=== PATIENT | male | born 1950 | race Caucasian/White ===

== ENCOUNTER 2025-01-19 18:24 | Emergency (ER) | payer MEDICARE, SELFPAY ==
--- OUTSIDE RECORDS SUMMARY | 2025-01-19 18:33 | XMS_ITS | Encounter Summary ---
Author Organization [employer] of [facility] and Its Subsidiaries and Affiliates Address [address] [address] [place] [address] Care Team Providers Care Canvas Goods Fabricator Name Role Phone Otilia Cagle MD Primary Care Provider [phone] Encounter Details Date Type Department Care Team (Late st Contact Info) Description 07/13/2024 Procedure Pass [facility] Practice [address] [place] [address] [place] [address] Social History Tobacco Use Types Packs/Day Years Used Date Smoking Tobacco: Former Cigarettes Smokeless Tobacco: Former Alcohol Use Standard Drinks/Week Comments Yes 3 (1 standard drink = 0.6 oz pur e alcohol) Occasionally PHQ-2 Answer Date Recorded PHQ-2 Score 0 07/13/2024 Sex and Gender Information Value Date Recorded Sex Assigned at Not on file 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
--- OUTSIDE RECORDS SUMMARY | 2025-01-19 18:33 | XMS_ITS | Clinical Summary ---
Author Organization Govind guerrier of [facility] and Its Subsidiaries and Affiliates Address [address] [address] [place] [address] Care Team Providers Care Autocad Name Role Phone Otilia Cagle MD Primary Care Provider Allergies Active Allergy Reactions Criticality Noted Date Comments Latex Rash Low 08/16/2023 Breaks out Penicillins Rash,Hives Medium 10/05/2016 Medications * Be aware that medications may not be up to date as of this document.Always verify current medications with patient. cholecalciferol, vitamin D3, 25 mcg (1,000 unit) tablet Take 1 tablet by mouth in the morning. Active L.acidoph, paracasei,B. lactis (Digestive Advantage Advanced) 10 billion cell Capsule Take by mouth. Active tamsulosin (Flomax) 0.4 mg Capsule Take 1 capsule by mouth in the morning and 1 capsule before bedtime. Active ezetimibe (ZETIA) 10 mg tablet Take 1 tablet by mouth in the morning. Active aspirin 81 mg EC tablet Take 1 tablet by mouth in the morning. Active atorvastatin (LIPITOR) 80 mg tablet Take 1 tablet by mouth in the morning. 4 Active lisinopriL (PRINIVIL,ZESTRI L) 10 mg tablet Take 1 tablet by mouth in the morning and 1 tablet before bedtime. 4 Active multivitamin (THERAGRAN) per tablet Take 1 tablet by mouth in the morning. Active montelukast (SINGULAIR) 10 mg tablet TAKE 1 TABLET AT BEDTIME 90 tablet 3 5 Active tadalafiL (Cialis) 20 mg tabletIndication s:Erectile dysfunction, unspecified erectile dysfunction type Take 1 tablet by mouth daily as needed for Erectile Dysfunction. 30 tablet 3 5 Active HYDROcodone-acet aminophen (NORCO) 5-325 mg per tablet 5 Active fluticasone propionate (FLONASE) 50 mcg/actuation nasal spray Instill 2 sprays into each nostril in the morning. 16 g 2 5 Active azelastine (ASTELIN 0.1%) 137 mcg (0.1 %) nasal spray Instill 2 sprays into each nostril in the morning and 2 sprays before bedtime. Use in each nostril as directed 90 mL 2 5 11/08/19 26 Active omeprazole (PRILOSEC) 20 mg capsule Take 1 capsule by mouth in the morning. 90 capsule 1 5 Active apixaban (Eliquis) 5 mg Take 1 tablet by mouth in the morning and 1 tablet before bedtime. 60 tablet 5 Active apixaban (Eliquis DVT-PE Treat 30D Start) Tablets, Dose Pack 10 mg twice daily x 7 days, then 5 mg twice daily 74 tablet 5 01/11/20 25 Discontinu ed(Therapy completed) Active Problems Problem Noted Date Diagnosed Date Colon cancer screening 10/09/2024 History of adenomatous polyp of colon 10/09/2024 Encounters Date Type Department Care Team Description 01/09/[address] [place] [phone] Michel Judd NP 12/20/[address] [place] [phone] Michel Judd NP 12/18/2024 10:00 AM CDT Office Visit [address] [place] [phone] Michel Judd NP 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, right (Primary Dx); History of recurrent deep vein thrombosis 12/18/[address] [place] [address] Michel Judd NP 12/16/2024 7:51 AM CDT - 12/16/2024 11:02 AM CDT Emergency [facility] - Emergency Department [address] [facility] [place] [address] Moustapha Lopez MD Venous thromboembolism (Primary Dx) Discharge Disposition: Home or Self Care 12/16/2024 Procedure Pass [facility] - US IMAGING [address] [facility] [place] [address] 12/16/2024 History [facility] - Emergency Department [address] [facility] [place] [address] Annalisa Moctezuma RN 12/16/2024 Travel 11/08/[address] [place] [address] Michel Judd NP 11/07/2024 10:48 AM CDT - 11/07/2024 11:59 PM CDT Hospital Encounter [facility] - [facility] IMAGING [address] [facility] [place] [address] Michel Judd NP Localized swelling of right lower extremity Discharge Disposition: Home or Self Care 11/07/2024 9:30 AM CDT Office Visit [address] [place] [address] Michel Judd NP Localized swelling of right lower extremity (Primary Dx); Varicose veins of right lower leg 11/07/2024 Results Follow-Up [address] [place] [phone] Chen Solis MA 11/07/2024 Procedure Pass [facility] - US IMAGING [address] [facility] [place] [address] 11/07/2024 History [facility] [address] [facility] [address] [place] [address] Michel Judd NP 10/31/2024 Results Follow-Up [facility] [address] [facility] [address] [place] [phone] Donald Holman DO from Last 3 Months Immunizations Immunization Administration Dates Next Due FLUAD High Dose (PF) Influen za Virus Vaccine 01/14/2024 Fluzone High-Dose (PF) Influ chandler Virus Vaccine 01/14/2024,03/06/2019 Influenza High-Dose (PF) Quad 0.7 mL 03/2023,02/03/2022,02/10/2021,04/15 Pneumococcal Conjugate PCV13 04/02/2020 Pneumococcal Polysaccharide PPSV23 04/15/2020 SARS-COV-2 Moderna (COVID-19 ) Vaccine Preservative Free 0.5 mL IM 09/24/2021,03/25/2021,07/16/2020,06/16 SARS-COV-2 Moderna 6-11YO OR > or = 18 YO Booster (COVID-19) Vaccine Preservative Free 0.5 mL IM 09/24/2021,03/25/2021,07/16/2020,06/16 SARS-COV-2 Pfizer Bivalent > or = 12Y0 (COVID-19) Pace Cap Vaccine Preservative Free 0.3 mL IM.3 mL IM 02/03/2022 Shingrix Zoster Vaccine 01/17/2019,11/18/2018 Tdap 11/04/2018 Family History Medical History Relation Comments Hypertension Mother Stroke Mother Colon cancer Neg Hx Relation Status Comments Mother Social History Tobacco Use Types Packs/Day Years Used Date Smoking Tobacco: Former Cigarettes Smokeless Tobacco: Former Tobacco Cessation:Counseling Given: Not Answered Alcohol Use Standard Drinks/Week Comments Yes 3 (1 standard drink = 0.6 oz pur e alcohol) Occasionally PHQ-2 Answer Date Recorded PHQ-2 Score 0 07/13/2024 Sex and Gender Information Value Date Recorded Sex Assigned at Not on file 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 Gender Identity Not on file Sexual Orientation Not on file Last Filed Vital Signs Vital Sign Reading Time Taken Comments Blood Pressure 122/84 12/18/2024 9:59 AM CDT Pulse 66 12/18/2024 9:59 AM CDT Temperature 36.9 C (98.5 F) 12/18/2024 9:59 AM CDT Respiratory Rate 19 12/18/2024 9:59 AM CDT Oxygen Saturation 95% 12/18/2024 9:59 AM CDT Inhaled Oxygen Concentration - - Weight 124.1 kg (273 lb 9.6 oz) 12/18/2024 9:59 AM CDT Height 188 cm (6' 2 ) 12/18/2024 9:59 AM CDT Body Mass Index 35.13 12/18/2024 9:59 AM CDT Plan of Treatment Health Maintenance Due Date Last Done Comments CT Colonography 1952 Cologuard 1952 FIT 1952 FOBT 1950 Flexible Sigmoidoscopy 1952 RSV Vaccines (1 - Risk 60-74 years 1-dose series) 2012 INFLUENZA VACCINE 12/01/2024 01/14/2024, , 01/11/2023, Additional history exists DTaP/Tdap/Td Vaccines (3 - Td or Tdap) 05/23/2025 11/20/2024, 11/04/2018 Annual Visit for Age 65 & older with PCP 07/13/2025 07/13/2024, 08/23/2023 Colonoscopy 10/13/2029 10/13/2024, 10/01, 09/23/2021 Colorectal Cancer Screening 10/13/2029 ZOSTER VACCINE Completed 01/17/2019, 11/18/2018 Pneumococcal Vaccine: 50+ Years Completed 04/15/2020, 04/02/2020 COVID-19 Vaccine Discontinued 02/03/2022, , 09/24/2021, Additional history exists Hepatitis B Vaccines Aged Out No long er eligible based on patient's age to complete this topic Hepatitis C Screening Discontinued RSV UNDER 20 MONTHS Aged Out No longe r eligible based on patient's age to complete this topic Medical Devices Implanted Type Area [employer] Clerk Device Identifier Shelf Expiration Date Model / Serial / Lot Endo Clip Rsl [id number] - [id number] Implanted:Qty: 1 on 10/13/2024 by Donald Holman DO at [facility] LR [employer] 06/30/2027 [id number] / / [id number] Endo Clip Rsl [id number] - [id number] Implanted:Qty: 1 on 10/13/2024 by Donald Holman DO at [facility] LR [employer] 06/30/2027 [id number] / / [id number] Procedures Procedure Name Priority Date/Time Associated Diagnosis Comments USV DUPLEX VENOUS LOWER EXTREMITY RIGHT STAT 12/16/2024 10:18 AM CDT CBC WITH AUTO DIFFERENTIAL STAT 12/16/2024 9:05 AM CDT APTT STAT 12/16/2024 9:05 AM CDT PROTIME-INR STAT 12/16/2024 9:05 AM CDT COMPREHENSIVE METABOLIC PANEL STAT 12/16/2024 9:05 AM CDT CBC AND DIFFERENTIAL STAT 12/16/2024 9:05 AM CDT USV DUPLEX VENOUS LOWER EXTREMITY RIGHT STAT 11/07/2024 11:16 AM CDT Localized swelling of right lower extremity HM COLONOSCOPY Routine 09/23/2021 5:26 PM CDT from Last 3 Months or Most Recently Relevant to Health Maintenance Results * USV Duplex Venous Lower Extremity Right (12/16/2024 10:18 AM CDT) Only the most recent of2 resultswithin the time period is included. Anatomical Region Laterality Modality Vascular Ultrasound Impressions 12/16/2024 10:26 AM CDT No evidence of deep venous thrombosis in the right lower extremity. Superficial venous thrombosis in the small saphenous vein and varicose veins. Narrative 12/16/2024 10:26 AM CDT RIGHT LOWER EXTREMITY VENOUS DOPPLER HISTORY: Pain and knot at site of previous blood clot; also has Hx of thrombophlebitis Real-time grayscale and color Doppler imaging was obtained of the venous system of the right lower extremity. There is patency and compressibility of the right common femoral vein to the popliteal vein. The right profunda femoris vein and greater saphenous vein are patent. Normal response to augmentation maneuver. The right peroneal, posterior tibial, and anterior tibial veins are patent. There is however superficial venous thrombosis in a varicose vein and in the small saphenous vein. Procedure Note Zi Olivo MD - 12/16/2024 RIGHT LOWER EXTREMITY VENOUS DOPPLER HISTORY: Pain and knot at site of previous blood clot; also has Hx ofthrombophlebitis Real-time grayscale and color Doppler imaging was obtained of the venoussystem of the right lower extremity. There is patency and compressibilityof the right common femoral vein to the popliteal vein. The right profundafemoris vein and greater saphenous vein are patent. Normal response toaugmentation maneuver. The right peroneal, posterior tibial, and anteriortibial veins are patent. There is however superficial venous thrombosis in a varicose vein and inthe small saphenous vein. IMPRESSION: No evidence of deep venous thrombosis in the right lower extremity. Superficial venous thrombosis in the small saphenous vein and varicoseveins. us Moustapha Lopez MD [facility] [place] ORDERABLES Final Resu lt * (ABNORMAL) CBC auto differential (12/16/2024 9:05 AM [facility]) [facility] White Blood Cell Count 6.2 4.0 - 11.0 1000/uL 12/16/2024 9:[address] [facility] Red Blood Cell Count 4.74 4.50 - 5.60 mill/uL 12/16/2024 9:[address] [facility] Hemoglobin 14.4 14.0 - 18.0 g/dL 12/16/2024 9:[address] [facility] Hematocrit 43.4 42.0 - 52.0 % 12/16/2024 9:[address] [facility] Mean Corpuscular Volume 92 80 - 100 fL 12/16/2024 9:[address] [facility] Mean Corpuscular Hemoglobin Conc 33.2 31.0 - 37.0 g/dL 12/16/2024 9:[address] [facility] Red Cell Distribution Width 12.7 12.1 - 14.9 % 12/16/2024 9:[address] [facility] Platelet Count 171 150 - 375 K/uL 12/16/2024 9:[address] [facility] Mean Platelet Volume 9.8 6.5 - 12.0 fL 12/16/2024 9:[address] [facility] nRBC 0.0 0.0 - 0.0 /100 WBCs 12/16/2024 9:[address] [facility] NRBC Absolute <0.01 <=0.11 1000/ul 12/16/2024 9:[address] [facility] Neutrophils % 57 44 - 81 % 12/16/2024 9:[address] [facility] Lymphocytes % 24 21 - 47 % 12/16/2024 9:[address] [facility] Monocytes % 10 2 - 11 % 12/16/2024 9:[address] [facility] Eosinophils % 8(H) 0 - 7 % 12/16/2024 9:[address] [facility] Basophils % 1 0 - 1 % 12/16/2024 9:[address] [facility] Immature Granulocytes 0.3 0.0 - 0.6 % 12/16/2024 9:[address] [facility] Neutrophils Abs 3.5 1.5 - 10.0 1000/UL 12/16/2024 9:[address] [facility] Lymphocytes Abs 1.5 1.3 - 2.9 1000/ul 12/16/2024 9:[address] [facility] Monocytes Abs 0.6 0.1 - 1.0 1000/ul 12/16/2024 9:[address] [facility] Eosinophils Abs 0.5 0.0 - 0.7 1000/UL 12/16/2024 9:[address] [facility] Basophils Abs 0.1 0.0 - 0.1 1000/UL 12/16/2024 9:15 AM CDT [facility] Immature Grans (Abs) <0.03 0.00 - 0.09 1000/ul 12/16/2024 9:15 AM CDT [facility] Blood VENOUS STRUCTURE / Unknown Venipuncture / Unknown 12/16/2024 9:05 AM CDT 12/16/2024 9:08 AM CDT us Moustapha Lopez MD LAB BLOOD ORDERABLES Final R esult [facility] [address] [place] [address] * PTT (12/16/2024 9:05 AM CDT) Partial Thromboplastin Time 26 21 - 31 SECONDS 12/16/2024 9:41 AM CDT [facility] Blood VENOUS STRUCTURE / Unknown Venipuncture / Unknown 12/16/2024 9:05 AM CDT 12/16/2024 9:08 AM CDT us Moustapha Lopez MD LAB BLOOD ORDERABLES Final R esult Performing Organization Address City/[facility]/ZIP Co de Phone Number [facility] [address] [place] [address] * Protime-INR (12/16/2024 9:05 AM CDT) Protime 11.1 9.3 - 11.4 SECONDS 12/16/2024 9:41 AM CDT [facility] INR 1.1 0.7 - 1.2 12/16/2024 9:41 AM CDT [facility] Blood VENOUS STRUCTURE / Unknown Venipuncture / Unknown 12/16/2024 9:05 AM CDT 12/16/2024 9:08 AM CDT us Moustapha Lopez MD LAB BLOOD ORDERABLES Final R esult [facility] [address] [phone] * (ABNORMAL) Comprehensive metabolic panel (12/16/2024 9:05 AM [facility]) Creatinine Level 0.83 0.57 - 1.25 mg/dL 12/16/2024 10:[address] [facility] Blood Urea Nitrogen Level 17 7 - 18 mg/dL 12/16/2024 10:[address] [facility] Sodium Level 141 136 - 145 mmol/L 12/16/2024 10:[address] [facility] Potassium Level 4.2 3.5 - 5.1 mmol/L 12/16/2024 10:[address] [facility] Chloride Level 106 100 - 109 mmol/L 12/16/2024 10:[address] [facility] CO2 Level 28 22 - 33 mmol/L 12/16/2024 10:[address] [facility] Glucose Level 99 65 - 100 mg/dL 12/16/2024 10:[address] [facility] Calcium Level 8.9 8.8 - 10.6 mg/dL 12/16/2024 10:[address] [facility] Protein Total 6.5 5.7 - 8.2 g/dL 12/16/2024 10:[address] [facility] Albumin Level 4.0 3.5 - 5.0 g/dl 12/16/2024 10:[address] [facility] Bilirubin Total 0.8 0.2 - 1.0 mg/dL 12/16/2024 10:[address] [facility] Alkaline Phosphatase Level 56 40 - 150 U/L 12/16/2024 10:[address] [facility] SGOT (AST) 27 15 - 37 U/L 12/16/2024 10:[address] [facility] SGPT (ALT) 37 10 - 49 U/L 12/16/2024 10:[address] [facility] Anion Gap 7(L) 8 - 16 mmol/L 12/16/2024 10:10 AM CDT [facility] EGFR 94 mL/min/1.7 3mSq 12/16/2024 10:10 AM CDT [facility] Comment: In accordance with NKF-ASN Task Force recommendation, calculation based on the Chronic Kidney Disease Epidemiology Collaboration (CKD-EPI) equation without adjustment for race. eGFR adjusted for gender and age and calculated in ml/min/1.73mSquared. eGFR cannot be calculated if patient is under 18 years of age. Reference Range: >= 60 ml/min/1.73mSquared. Blood VENOUS STRUCTURE / Unknown Venipuncture / Unknown 12/16/2024 9:05 AM CDT 12/16/2024 9:08 AM CDT Moustapha Lopez MD LAB BLOOD ORDERABLES Final R esult [facility] [address] [place], [place] [address] [place] [address] * HM COLONOSCOPY (09/23/2021 5:26 PM CDT) Historical Provider HEALTH MAINTENANCE Final Result from Last 3 Months or Most Recently Relevant to Health Maintenance Insurance [place] [employer] Advance Directives Documents on File Type Date Recorded Patient Management Services Technician Expl anation Advance Directives and Livin g Will 10/13/2024 8:18 AM Care Teams Autocad Relationship Specialty [place] [address] [place] [address] [place] [address] PCP - General Family Medicine 06/01/23
--- OUTSIDE RECORDS SUMMARY | 2025-01-19 18:33 | XMS_ITS | Encounter Summary ---
Author Organization [employer] of [facility] and Its Subsidiaries and Affiliates Address [address] [address] [place] [address] Care Team Providers Care Welder Production Line Combination Name Role Phone Otilia Cagle MD Primary Care Provider Encounter Details Date Type Department Care Team (Late st Contact Info) Description 08/23/2023 Procedure Pass [facility] [address] [place] [address] [place] [phone] Social History Tobacco Use Types Packs/Day Years Used Date Smoking Tobacco: Former Cigarettes Smokeless Tobacco: Never Alcohol Use Standard Drinks/Week Comments Yes 3 (1 standard drink = 0.6 oz pur e alcohol) Occasionally PHQ-2 Answer Date Recorded PHQ-2 Score 0 08/23/2023 Sex and Gender Information Value Date Recorded Sex Assigned at Not on file 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
--- OUTSIDE RECORDS SUMMARY | 2025-01-19 18:33 | XMS_ITS | Encounter Summary ---
Author Organization Govind Gailgiacomo s of [facility] and Its Subsidiaries and Affiliates Address [address] [address] [place] [address] Care Team Providers Care Vice President Compliance Name Role Phone Otilia Cagle MD Primary Care Provider [phone] Encounter Details Date Type Department Care Team (Late st Contact Info) Description 12/20/2024 Telephone [facility] [address] [facility] [address] [place] [phone] Michel Judd, CASSIE [address] 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 Mac's office. States has reviewed referral and US results, states that this is a vascular condition and needs to see vascular sx. I advised Wilma that we did indeed have a referral out to Dr. Gage Starks with [facility]. Dr. Mac suggested that CA screenings be up to date. Pt will f/u with vascular surgery documented in this encounter Plan of Treatment Not on file documented as of this encounter Visit Diagnoses Not on filedocumented in this encounter Care Teams Vice President Compliance Relationship Specialty Start Date End Date Otilia Cagle MD [address] [place] [address] PCP - General Family Medicine 06/01/23 documented as of this encounter
--- OUTSIDE RECORDS SUMMARY | 2025-01-19 18:33 | XMS_ITS | Encounter Summary ---
Author Organization Govind Kiheigiacomo s of [facility] and Its Subsidiaries and Affiliates Address [address] [address] [place] [address] Care Team Providers Care Machine Molder Name Role Phone Otilia Cagle MD Primary Care Provider [phone] Encounter Details Date Type Department Care Team (Late st Contact Info) Description 11/08/2024 Telephone [facility] [address] [facility] [address] [place] [phone] Michel Judd, CASSIE [address] [facility] [address] [place] [address] Social History Tobacco Use Types Packs/Day Years Used Date Smoking Tobacco: Former Cigarettes Smokeless Tobacco: Former Alcohol Use Standard Drinks/Week Comments Yes 3 (1 standard drink = 0.6 oz pur e alcohol) Occasionally PHQ-2 Answer Date Recorded PHQ-2 Score 0 07/13/2024 Sex and Gender Information Value Date Recorded Sex Assigned at Not on file 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 Gender Identity Not on file Sexual Orientation Not on file documented as of this encounter Miscellaneous Notes * Telephone Encounter - Chen Solis MA - 11/08/2024 10:25 AM CDT Pt LVM requesting call back regarding how much IBU he needs to take for pain documented in this encounter Plan of Treatment Not on file documented as of this encounter Visit Diagnoses Not on filedocumented in this encounter Care Teams Machine Molder Relationship Specialty Start Date End Date Otilia Cagle MD [address] [facility] [place] [address] PCP - General Family Medicine 06/01/23 documented as of this encounter
--- OUTSIDE RECORDS SUMMARY | 2025-01-19 18:33 | XMS_ITS | Encounter Summary ---
Author Organization Govind Bonanzagiacomo s of [facility] and Its Subsidiaries and Affiliates Address [address] [address] [place] [address] Care Team Providers Care Segregator Name Role Phone Otilia Cagle MD Primary Care Provider Encounter Details Date Type Department Care Team (Latest Contact Info) Description 04/17/2024 Transcribe Orders [facility] [address] [facility] [place] [address] [place] [address] [place] [address] Hyperlipidemia, unspecified hyperlipidemia type (Primary Dx); Essential hypertension, malignant Social History Tobacco Use Types Packs/Day Years Used Date Smoking Tobacco: Former Cigarettes Smokeless Tobacco: Never Alcohol Use Standard Drinks/Week Comments Yes 3 (1 standard drink = 0.6 oz pur e alcohol) Occasionally PHQ-2 Answer Date Recorded PHQ-2 Score 0 08/23/2023 Sex and Gender Information Value Date Recorded Sex Assigned at Not on file Legal Sex Male 6:29 PM DISCHARGE SPECIALIST Gender Identity Not on file Sexual Orientation Not on file documented as of this encounter Plan of Treatment Not on file documented as of this encounter Results * (ABNORMAL) Comprehensive metabolic panel (04/17/2024 8:35 AM DISCHARGE SPECIALIST) Creatinine Level 0.87 0.57 - 1.25 mg/dL 04/17/2024 9:39 AM [facility] Blood Urea Nitrogen Level 12 7 - 18 mg/dL 04/17/2024 9:39 AM [facility] Sodium Level 142 136 - 145 mmol/L 04/17/2024 9:39 AM [facility] Potassium Level 4.4 3.5 - 5.1 mmol/L 04/17/2024 9:39 AM [facility] Chloride Level 108 100 - 109 mmol/L 04/17/2024 9:39 AM [facility] CO2 Level 28 22 - 33 mmol/L 04/17/2024 9:39 AM [facility] Glucose Level 106(H) 65 - 100 mg/dL 04/17/2024 9:39 AM [facility] Calcium Level 9.3 8.8 - 10.6 mg/dL 04/17/2024 9:39 AM [facility] Protein Total 6.6 6.0 - 8.3 g/dL 04/17/2024 9:39 AM [facility] Albumin Level 4.1 3.5 - 5.0 g/dl 04/17/2024 9:39 AM [facility] Bilirubin Total 1.1(H) 0.2 - 1.0 mg/dL 04/17/2024 9:39 AM [facility] Alkaline Phosphatase Level 62 40 - 150 U/L 04/17/2024 9:39 AM [facility] SGOT (AST) 27 15 - 37 U/L 04/17/2024 9:39 AM [facility] SGPT (ALT) 43 10 - 49 U/L 04/17/2024 9:39 AM [facility] Anion Gap 6(L) 8 - 16 mmol/L 04/17/2024 9:39 AM [facility] EGFR 92 mL/min/1. 73mSq 04/17/2024 9:39 AM [facility] Comment: In accordance with NKF-ASN Task Force recommendation, calculation based on the Chronic Kidney Disease Epidemiology Collaboration (CKD-EPI) equation without adjustment for race. eGFR adjusted for gender and age and calculated in ml/min/1.73mSquared. eGFR cannot be calculated if patient is under 18 years of age. Reference Range: >= 60 ml/min/1.73mSquared. Blood VENOUS STRUCTURE / Unknown Venipuncture / Unknown 04/17/2024 8:35 AM DISCHARGE SPECIALIST 04/17/2024 9:22 AM DISCHARGE SPECIALIST Kalia Cristobal MD LAB BLOOD ORDERABLES Final Resul t Performing Organization Address City/[facility]/ZIP Co de Phone Number [facility] [address] [place] [address] * (ABNORMAL) Lipid panel (04/17/2024 8:35 AM DISCHARGE SPECIALIST) Cholesterol 116 0 - 199 mg/dL 04/17/2024 9:39 AM [facility] Triglycerides 61 0 - 149 mg/dL 04/17/2024 9:39 AM [facility] HDL Cholesterol 48(L) >=61 mg/dL 9:39 AM [facility] Low Density Lipoprotein (Calculated) 56 0 - 100 mg/dL 04/17/2024 9:39 AM [facility] Non-HDL Cholesterol (Calculated) 68 0 - 159 MG/DL 04/17/2024 9:39 AM [facility] Blood VENOUS STRUCTURE / Unknown Venipuncture / Unknown 04/17/2024 8:35 AM DISCHARGE SPECIALIST 04/17/2024 9:22 AM DISCHARGE SPECIALIST Kalia Cristobal MD LAB BLOOD ORDERABLES Final Resul t Performing Organization Address [facility] Co de Phone Number [facility] [address] [place] [address] documented in this encounter Visit Diagnoses Diagnosis Hyperlipidemia, unspecified hyperlipidemia type- Primary Essential hypertension, malignant documented in this encounter Care Teams Segregator Relationship Specialty Start Date End Date Otilia Cagle MD [address] [place] [address] PCP - General Family Medicine 06/01/23 documented as of this encounter
--- OUTSIDE RECORDS SUMMARY | 2025-01-19 18:33 | XMS_ITS | Clinical Summary ---
Author Organization [facility] Address [address] [place] [address] Care Team Providers Care Collar Feller Name Role Phone Otilia Cagle Primary Care Provider [phone] Social History Tobacco Use Types Packs/Day Years Used Date Smoking Tobacco: Never Assessed Sex and Gender Information Value Date Recorded Sex Assigned at Not on file Legal Sex Male 12:28 PM CDT Gender Identity Not on file Sexual Orientation Not on file Plan of Treatment Upcoming Encounters Date Type Department Care Team (Late st Contact Info) Description 01/24/2025 1:45 PM CDT Clinical Support [facility] [address] [place] [phone] 01/24/2025 2:15 PM CDT Consult [facility] [address] [place] [phone] Gage Starks MD [address] [place] [address]. [address] [place] [address] Health Maintenance Due Date Last Done Comments Annual Wellness Visit 1952 CT Colonography 1952 Colonoscopy 1952 Colorectal Cancer Screening 1952 FIT-DNA 1952 FIT 1952 FOBT 1950 Lipid Panel 1952 Sigmoidoscopy 1952 DTaP/Tdap/Td Vaccines (1 - Tdap) 1970 Hepatitis C Screening 1970 Pneumococcal Vaccine: 50+ Years (2 of 2 - PCV) 04/15/2021 04/15/2020 Influenza Vaccine (#1) 2025 , 01/11/2023, 02/03/2022, Additional history exists Zoster Vaccines Completed 01/17/2019, 11/18/2018 HIB Vaccines Aged Out No longer eligi ble based on patient's age to complete this topic Hepatitis A Vaccines Aged Out No long er eligible based on patient's age to complete this topic IPV Vaccines Aged Out No longer eligi ble based on patient's age to complete this topic Meningococcal B Vaccine Aged Out No l onger eligible based on patient's age to complete this topic Meningococcal Vaccine Aged Out No davie chester eligible based on patient's age to complete this topic Rotavirus Vaccines Aged Out No longer eligible based on patient's age to complete this topic Insurance [facility] MEDICARE SUPPLEMENT Care Teams Collar Feller Relationship Specialty Start Date End Date Otilia Cagle [address] [place] [address] [place] [address] PCP - General 01/17/25
--- OUTSIDE RECORDS SUMMARY | 2025-01-19 18:33 | XMS_ITS | Encounter Summary ---
Author Organization [facility] of [facility] and Its Subsidiaries and Affiliates Address [address] [address] [place] [address] Care Team Providers Care Director Of Strategy & Mobile Name Role Phone Otilia Cagle MD Primary Care Provider Encounter Details Date Type Department Care Team (Late st Contact Info) Description 12/16/2024 Procedure 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 Wish to be (Past 1 Month) No 025 7:53 AM Annalisa Schmidt RN 2. Non-Specific Active Suici alena Thoughts (Past 1 Month) No 12/16/2024 7:53 AM Jeffrey Schmidt RN 6. Suicidal Behavior (Lifetime) No 7:53 AM Annalisa Schimdt RN documented as of this encounter Plan of Treatment Not on file documented as of this encounter Visit Diagnoses Not on filedocumented in this encounter Care Teams Director Of Strategy & Mobile Relationship Specialty [place] [address] [place] [id number] PCP - General Family Medicine 06/01/23 documented as of this encounter
--- OUTSIDE RECORDS SUMMARY | 2025-01-19 18:33 | XMS_ITS | Encounter Summary ---
Author Organization Govind Sebekagiacomo s of [facility] and Its Subsidiaries and Affiliates Address [address] [address] [place] [address] Care Team Providers Care Ruby Developer Name Role Phone Otilia Cagle MD Primary Care Provider Encounter Details Date Type Department Care Team (Late st Contact Info) Description 11/07/2024 Procedure [facility] [address] [place] [address] Social History Tobacco Use Types Packs/Day Years Used Date Smoking Tobacco: Former Cigarettes Smokeless Tobacco: Former Alcohol Use Standard Drinks/Week Comments Yes 3 (1 standard drink = 0.6 oz pur e alcohol) Occasionally PHQ-2 Answer Date Recorded PHQ-2 Score 0 07/13/2024 Sex and Gender Information Value Date Recorded Sex Assigned at Not on file 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
--- OUTSIDE RECORDS SUMMARY | 2025-01-19 18:34 | XMS_ITS | Encounter Summary ---
Author Organization Govind Mcloudgiacomo s of [facility] and Its Subsidiaries and Affiliates Address [address] [address] [place] [address] Care Team Providers Care Molybdenum Steamer Operator Name Role Phone Otilia Cagle MD Primary Care Provider [phone] Encounter Details Date Type Department Care Team (Late st Contact Info) Description 10/13/2024 Procedure [facility] [address] [facility] [place] [address] Social History Tobacco Use Types Packs/Day Years Used Date Smoking Tobacco: Former Cigarettes Smokeless Tobacco: Former Alcohol Use Standard Drinks/Week Comments Yes 3 (1 standard drink = 0.6 oz pur e alcohol) Occasionally PHQ-2 Answer Date Recorded PHQ-2 Score 0 07/13/2024 Sex and Gender Information Value Date Recorded Sex Assigned at Not on file 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 Wish to be (Past 1 Month) No 025 8:55 AM Ashley Garcias, RN 2. Non-Specific Active Suici alena Thoughts (Past 1 Month) No 10/13/2024 8:55 AM CDT Traci Temple, SUDHAKAR documented as of this encounter Plan of Treatment Not on file documented as of this encounter Visit Diagnoses Not on filedocumented in this encounter Care Teams Molybdenum Steamer Operator Relationship Specialty Start Date End Date Otilia Cagle MD [address] [place] [address] PCP - General Family Medicine 06/01/23 documented as of this encounter
--- OUTSIDE RECORDS SUMMARY | 2025-01-19 18:34 | XMS_ITS | Clinical Summary ---
Author Organization [facility] and Its Subsidiaries and Affiliates Address [address] [facility] [place] [address] Care Team Providers Care Music Journalist Name Role Phone Otilia Cagle MD Primary Care Provider Allergies Active Allergy Reactions Criticality Noted Date Comments Penicillins Hives 10/05/2016 Medications benazepril (LOTENSIN) 20 MG tablet Take 20 mg by mouth 2 (two) times daily. 99 08/21/2016 Active aspirin (ECOTRIN) 81 MG EC tablet Take 81 mg by mouth once daily. Active hydrochlorothiaz jai (HYDRODIURIL) 25 MG tablet Take 25 mg by mouth daily as needed. Active fexofenadine (LORETTA) 180 MG tablet Take 180 mg by mouth once daily. Active triamcinolone (NASACORT) 55 mcg nasal inhaler 2 sprays by Nasal route once daily. Active atorvastatin (LIPITOR) 80 MG tablet Take 80 mg by mouth once daily. Active GLUCOSAMINE/DARWIN DROITIN SULF A (GLUCOSAMINE-CHO NDROITIN ORAL) Take 1 tablet by mouth 2 (two) times daily. Active DOCOSAHEXANOIC ACID/EPA (FISH OIL ORAL) Take 1 tablet by mouth 2 (two) times daily. Active multivitamin (ONE DAILY MULTIVITAMIN) per tablet Take 1 tablet by mouth once daily. Active atenolol (TENORMIN) 50 MG tablet Take 50 mg by mouth once daily. Active diphenhydramine HCl 25 mg TbDL Take 1 tablet by mouth as needed. Active HONEY ORAL Take by mouth as needed. Active ezetimibe (ZETIA) 10 mg tablet Take 10 mg by mouth once daily. Active tamsulosin (FLOMAX) 0.4 mg Cp24 Take 0.4 mg by mouth once daily. Active Active Problems No known active problems Family History Medical History Relation Comments Asthma Brother Cancer Father Seizures Mother Stroke Mother Thyroid disease Mother Migraines Neg Hx Relation Status Comments Brother Father Lymphoma Mother Social History Tobacco Use Types Packs/Day Years Used Date Smoking Tobacco: Former Cigarettes Q uit: 10/06/1979 Alcohol Use Standard Drinks/Week Comments Yes 0 (1 standard drink = 0.6 oz pur e alcohol) Only occasionally Sex and Gender Information Value Date Recorded Sex Assigned at Not on file Legal Sex Male 10:37 AM CDT Gender Identity Not on file Sexual Orientation Not on file Last Filed Vital Signs Vital Sign Reading Time Taken Comments Blood Pressure 121/80 10/05/2016 9:13 AM CDT Pulse 62 10/05/2016 9:13 AM CDT Temperature 36.6 C (97.8 F) 10/05/2016 9:13 AM CDT Respiratory Rate - - Oxygen Saturation - - Inhaled Oxygen Concentration - - Weight 127.7 kg (281 lb 8.4 oz) 10/05/2016 9:13 AM CDT Height - - Body Mass Index - - Plan of Treatment Health Maintenance Due Date Last Done Comments Cologuard 1950 Colonography 1950 Fecal Occult Blood Test (FOBT)/FitKit 1952 Hepatitis C Screening 1952 Lipid Panel 1952 TETANUS VACCINE 1970 Colonoscopy 1997 Colorectal Cancer Screening 1997 Flexible Sigmoidoscopy 1997 Pneumococcal Vaccines (Age 50+) (1 of 1 - PCV) 003 Shingles Vaccine (1 of 2) 2002 Abdominal Aortic Aneurysm Screening 2017 COVID-19 Vaccine (1 - 2023- season) 2025 Influenza Vaccine (#1) 2025 RSV Vaccine (Age 60+ and Pre gnant patients) (1 - 1-dose 75+ series) 12/25/2027 Insurance [employer] Care Teams Music Journalist Relationship Specialty Start Date End Date Otilia Cagle MD [address] [place] [address] [place] [address] PCP - General Family Medicine 10/02/16
[2025-01-19 18:42] VITALS: BP 170/76; PULSE 99; RESP 18; TEMP 38.3; O2SAT 96; BMI 35.3
--- NOTE | 2025-01-19 20:48 | XRR_ITS ---
PROCEDURE INFORMATION: Exam: XR Chest Exam date and time: 01/19/2025 8:55 PM Age: 74 years old Clinical indication: Cough and congestion. Positive home covid test. TECHNIQUE: Imaging protocol: Radiologic exam of the chest. Views: 1 view. COMPARISON: No relevant prior studies available. FINDINGS: Lungs: Unremarkable. No consolidation. Pleural spaces: Unremarkable. No pleural effusion. No pneumothorax. Heart/Mediastinum: Unremarkable. No cardiomegaly. Bones/joints: Unremarkable. Other findings: Punctate metallic density overlies the left lower lung zone. XR/XR chest 1V portable [id number] IMPRESSION: No acute intrathoracic abnormality.
[2025-01-19 21:50] LABS: Respiratory Syncytial Virus Ce NEGATIVE (Negative)
[2025-01-19 22:39] VITALS: BP 141/86; PULSE 100; O2SAT 92
--- NOTE | 2025-01-19 23:32 | ED_ITS ---
HPI - URI/Sore Throat General: Chief Complaint: Upper Respiratory Infection Stated Complaint: Tested positive for covid, need to be treated Time Seen by Provider: 01/19/25 20:47 History of Present Illness: Patient is 74-year-old gentleman traveling from out of [facility], started having c hest congestion, coughing, nonproductive, fever. He took a home test and was positive for COVID. Associated symptoms: Reports chills, fever(s) and headache(s); Deny abdominal pain, nausea or vomiting Related Data Previous Rx's ?Medication ?Instructions ?Recorded methylprednisolone 4 mg tablets in See Rx Instructions PO .COMPLEX 01/19/25 a dose pack (Medrol (Johnny)) #21 ea Allergies Allergy/AdvReac Type Severity Reaction Status Date / Time Penicillins Allergy ALGY-Hives Verified 01/19/25 18:47 Review of Systems General: Reports: 10 or more systems reviewed and unremarkable except in HPI and below Const: Reports: fever(s), chills, body aches and malaise Eyes: Denies: change in vision or blurry vision ENMT: Reports: throat pain; Denies: mouth pain Resp: Reports: dyspnea, productive cough and wheezing GI: Denies: abdominal pain, nausea or vomiting : Denies: flank pain or difficulty urinating Musc: Denies: neck pain or back pain Skin/Breast: Denies: rash or pruritus Neuro: Reports: headache(s); Denies: numbness in extremities or weakness in extremities Physical Exam Const: COMMON NORMALS: no acute distress, average body habitus, patient oriented x3 and no limitations HENMT: COMMON NORMALS: normocephalic and atraumatic HEAD & SCALP: normocephalic and atraumatic Eye: COMMON NORMALS: Equal, round and reactive pupils present, EOMs intact bilaterally and conjunctivae normal CONJUNCTIVA: Yes conjunctivae normal PUPIL: Yes Equal, round and reactive pupils present Neck/C-Spine: COMMON NORMALS: full ROM, no lymphadenopathy, supple and no meningeal signs Lymph: LYMPHATIC: no lymphadenopathy noted Chest: COMMONS NORMALS: normal inspection of the chest and normal palpation of entire chest wall Resp: COMMON NORMALS: normal respiratory effort and No retractions EFFORT & INSPECTION: Yes able to speak in complete sentences, No Actively coughing and No tripod positioning AUSCULTATION: bronchial breath sounds bilateral Cardio: COMMON NORMALS: regular rate and regular rhythm RATE: regular rate RHYTHM: regular rhythm GI: COMMON NORMALS: Normal to inspection, nondistended, normoactive bowel sounds present, Soft to palpation, non-tender and No hepatosplenomegaly present PALPATION: Yes Soft to palpation and Yes No hepatosplenomegaly present : COMMON NORMALS: Yes no CVA tenderness BLADDER/KIDNEY EXAM: Yes no CVA tenderness Back/Pelvis: COMMON NORMALS: no CVA tenderness Extremity: COMMON NORMALS: normal to inspection, full ROM and capillary refill normal Neuro: COMMON NORMALS: patient oriented x3 MENINGEAL SIGNS: Yes no meningeal signs Psych: COMMON NORMALS: mental status grossly normal and Normal thought process present THOUGHT PROCESS: Normal thought process present Course Vital Signs: Vital signs: Vital Signs Temperature 101.0 F H 01/19/25 18:42 Pulse Rate 93 01/19/25 23:48 Respiratory Rate 18 01/19/25 18:42 Blood Pressure 143/110 01/19/25 23:48 Pulse Oximetry 93 01/19/25 23:48 MDM - URI/Sore Throat Medical Decision Making Patient is 74-year-old gentleman that is traveling here from out of [facility] with fever, shortness of breath, and COVID. COVID was positive here. He does state he feels better after dexamethasone. X-rays negative. Medrol Dosepak sent to the pharmacy. I did educate patient and on isolation and they state understanding. They will return to ED with worsening shortness of breath and stay isolated. All of their questions answered their satisfaction Medical Records I reviewed the patient's medical records. Lab Data I reviewed the patient's lab results. Radiology Impressions Chest X-Ray 01/19/25 20:48 IMPRESSION: No acute intrathoracic abnormality. Laboratory Results Influenza A (PCR) Negative (Negative) 01/19/25 21:08 Influenza Type B (PCR) Negative (Negative) 01/19/25 21:08 RSV (PCR) Negative (Negative) 01/19/25 21:08 SARS-CoV-2 (PCR) Positive (Negative) A 01/19/25 21:08 All radiology interpretation(s) finalized by discharge Discharge Plan Discharge Patient Disposition: Home Clinical Impression: COVID-19 Condition: Stable Prescriptions: New methylprednisolone [Medrol (Johnny)] 4 mg tablets,dose pack See Rx Instructions .ROUTE .COMPLEX Qty: 21 0RF Rx Instructions: for 6 days Discharge Orders: Discharge ED (Routine); Ordered 01/19/25 Ordered By: Jennifer Perkins Referrals: Otilia Cagle [Primary Care Provider] Discharge Diet: Usual diet Discharge Activity: Resume usual activity Patient Instructions: COVID-19 (Coronavirus Disease 2019) (ED), Patient Portal & Raisa Instructions Activity Restrictions/Additional Instructions: - Stay isolated for 5 days after your symptoms started -Return to ED if you have worsening shortness of breath. 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 Please wear a mask when you are out and not isolated. - They do recommend prone breathing daily. This is where you lay on your stomach and take deep breaths. They recommended doing this several times during the day to help with lung function. -Criteria for being admitted: Increasing shortness of breath where you cannot catch her breath, oxygen saturation 88% or less. -You are however welcome to come back and be reevaluated to make sure you are safe. Print Language: Malagasy Coding Level of Care Code ED Staff Respiratory Therapist for Alisha Petersen
[2025-01-19 23:48] VITALS: BP 143/110; PULSE 93; O2SAT 93
[2025-01-20 00:42] LABS: SARS-CoV-2 PCR Positive (Negative)
== END 2025-01-19 23:43 | disposition home or self-care (01) ==
PROVIDERS: Emergency Provider Physician Assistant; PCP Family Medicine
DX: U07.1 COVID-19 (principal); Z11.52 Encounter for screening for COVID-19
CPT/HCPCS: 71045; 87637; 96372; 99284; J1100; J9999